=== PATIENT | female | born 1970 | race Caucasian/White ===

== ENCOUNTER 2017-08-13 17:27 | Emergency (ER) | payer OTHER ==
[~2017-08-13] VITALS: Ht 180.3 cm; Wt 106.3 kg
[2017-08-13 18:05] LABS: HEMATOCRIT 43.4 % (36.0-46.0); MCH 32.7 PG (29.0-34.0); MCHC 34.8 G/DL (30.0-36.0); MCV 93.9 FL (83-99); MEAN PLAT.VOLUME 9.8 uM^3 (9.5-12.4); PLATELET COUNT 173 K/uL (156-360); RBC DIS.WIDTH-CV 14.7 % (11.8-14.6); RBC DIS.WIDTH-SD 51.2 % (39-53); RED BLOOD COUNT 4.62 M/uL (3.80-5.20); WHITE BLOOD COUNT 4.2 K/uL (4.1-10.2)
[2017-08-13 18:10] LABS: COCAINE NEGATIVE (150 ng/mL); METHAMPHETAMINE NEGATIVE (500 ng/mL); OPIATES (MORPHINE) NEGATIVE (100 ng/mL); PHENCYCLIDINE NEGATIVE (25 ng/mL); THC CANNABINOIDS NEGATIVE (50 ng/mL)
[2017-08-13 18:11] LABS: AMPHETAMINE NEGATIVE (500 ng/mL); BARBITURATES NEGATIVE (200 ng/mL); BENZODIAZEPINES NEGATIVE (150 ng/mL); INTERNAL CONTROLS VALID? YES; METHADONE NEGATIVE (200 ng/mL); OXYCODONE NEGATIVE (100 ng/mL); PROPOXYPHENE NEGATIVE (300 ng/mL); TRICYCLIC ANTIDEPRESSANTS NEGATIVE (300 ng/mL)
[2017-08-13 18:14] LABS: CHLORIDE 101 mEq/L (99-109); POTASSIUM 3.8 mEq/L (3.7-5.4); SODIUM 139 mEq/L (136-147)
[2017-08-13 18:16] LABS: GLUCOSE 95 mg/dL (70-99)
[2017-08-13 18:17] LABS: ANION GAP 16 MEQ/L (2-14)
[2017-08-13 18:19] LABS: SERUM ETHYL ALCOHOL 235 mg/dL
[2017-08-13 18:20] LABS: GFR ESTIMATE (CALCULATED) > 59 mL/min/; UREA NITROGEN (BUN) 10 mg/dL (9-23)
[2017-08-14 00:33] VITALS: BP 141/72
== END 2017-08-14 00:34 | disposition home or self-care (01) ==
LOC: EME 17:27
PROVIDERS: Emergency Medicine
DX: F25.0 Schizoaffective disorder, bipolar type (principal); R45.851 Suicidal ideations; F10.229 Alcohol dependence with intoxication, unspecified; Y90.7 Blood alcohol level of 200-239 mg/100 ml; F41.9 Anxiety disorder, unspecified; F17.210 Nicotine dependence, cigarettes, uncomplicated; Z88.8 Allergy status to other drugs, medicaments and biological substances
CPT/HCPCS: 80048; 85027; 90839; 99281; 99285; G0480